=== PATIENT | female | born 1975 | race Two or more races ===

== ENCOUNTER → 2024-10-13 | Outpatient (CLI) | payer OTHER, SELFPAY ==
--- NOTE | 2024-10-13 11:02 | XR_ITS ---
Examination: Sinus series 4 views TECHNIQUE: Petey Solano lateral submentovertex sinus series 4 views Date and time: October 13, 2024 1105 hours INDICATIONS: Sinus pressure and pain months. FINDINGS: Significant opacity frontal ethmoid air cells Total opacification left maxillary antrum and prominent mucosal thickening in the right maxillary antrum Haziness in the sphenoid air cells IMPRESSION: Significant chronic pansinusitis.
== END | disposition home or self-care (01) ==
PROVIDERS: Referring Provider Allergy & Immunology; Visit Provider Allergy & Immunology
DX: J32.4 Chronic pansinusitis (principal)
CPT/HCPCS: 70220

== ENCOUNTER → 2024-12-07 | Outpatient (CLI) | payer OTHER, SELFPAY ==
--- NOTE | 2024-12-07 16:00 | XR_ITS ---
Examination: CT maxillofacial, without intravenous contrast. 2-D sagittal reconstructions. 3-D reconstructions. Date and time of exam:December 07, 2024, 1616 hours Comparison November 17, 2017 INDICATIONS: Sinus pressure and pain beginning 7 years ago more severe the last month CTDI: vol (mGy):6.92. DLP: (mGycm):94.5. Technique: Multiple axial images of maxillofacial region, 3.0 mm slice thickness. 2-D sagittal and coronal reconstructions. 3-D reconstructions. Low dose protocols were performed. One or more of the following dose reduction techniques were used; automated exposure control, adjustment of the mA and/or KV according to patient size, use of iterative reconstruction technique. Findings: Significant opacification frontal ethmoid air cells, prominent mucosal thickening maxillary antra with occlusion of the ostiomeatal complexes Fluid level in the left maxillary antrum Extensive sphenoid sinus disease Extensive mucosal disease in the nasal airways No em cortical bone destruction IMPRESSION: Severe chronic pansinusitis Acute left maxillary sinusitis..
== END | disposition home or self-care (01) ==
PROVIDERS: PCP Family Medicine; Referring Provider Allergy & Immunology; Visit Provider Allergy & Immunology
DX: J32.4 Chronic pansinusitis (principal); J01.00 Acute maxillary sinusitis, unspecified
CPT/HCPCS: 70486